=== PATIENT | male | born 1970 | race Caucasian/White ===

== ENCOUNTER 2023-08-12 19:30 | Emergency (ER) | payer OTHER, SELFPAY ==
[2023-08-12 19:31] VITALS: BP 159/94; PULSE 106; RESP 18; TEMP 36.6; O2SAT 100; BMI 30.1
--- NOTE | 2023-08-12 19:52 | ED_ITS ---
Discharge Plan Disposition Patient Disposition: Home, Self-Care Condition: Good Referrals Follow up/Referrals: Johnnie Gilmore [Primary Care Provider] - See instructions Activity Restrictions/Add. Instructions Additional Instructions/Restrictions: You were evaluated in the emergency department today. You may have some localized pain and swelling at the site of injection, however this should not cause you any significant issue. Please monitor for any significant worsening redness, warmth, swelling, or purulent drainage from the wounds, as this could indicate infection. Follow-up with your primary care provider for reassessment. Make sure to use future medications intramuscularly if that is what is instructed on the bottle. Return to the emergency department for new or worsening symptoms Clinical Impressions Clinical Impression: Pain at injection site Instructions Patient Instructions: DI for Intramuscular Injection, DI for Acute Pain -- Adult Discharge ED Provider: Elizabeth Lanier General Adult HPI General Chief complaint: PAIN Stated complaint: abd pain Time Seen by Provider: 08/12/23 19:33 Mode of Arrival: Ambulatory Source of Information: Patient Limitations: No Limitations Description of Symptoms (Recalled from ER Triage Doc. by RN): Pt. was previously on Testerone 100 mg, lost insurance x 1.5 years. Today took Testerone 200 mg sub Q, Dose was suppose to IM. C.o buring to abdomen. History of Present Illness HPI narrative: This patient is a 53-year-old male presenting to the emergency department for evaluation because he accidentally injected his testosterone subcutaneously as opposed to IM. He states that he previously was on subcutaneous testosterone, which he was supposed to inject in his lower abdominal fat. He states that this is the first time he has been given this formulation of testosterone, which on the bottle still subcutaneous. He states he was never notified that it was post to subcutaneous, but when he started having some burning and irritation at the site of injection. He notes that he started trying to inject the medication in his right lower subcutaneous fat on his abdominal wall, but it started burning, so he switched to the left lower side. Now he is having burning at both sites. He states he barely injected the needle into the skin just like he did with the subcutaneous needles. He called the pharmacy given the pain at the site of injection, and the pharmacy stated that since he injected it subcutaneously as opposed to IM, he should come to the emergency department. He complains of localized burning pain at the site of injection, but no other concerns or complaints noted at this time. He used a clean sterile needle and sterilely prepped the skin. Related Data Allergies Allergy/AdvReac Type Severity Reaction Status Date / Time From Codeine Sulfate Allergy Unknown Uncoded 02/23/17 15:01 Opioid Allergy Unknown Uncoded 02/23/17 15:01 Penicillin Allergy Unknown Uncoded 02/23/17 15:01 [facility] Disclaimer: The information contained in this section may have been updated after the patient was seen, as this information can be updated by other users. Social History Smoking Status: Never smoker alcohol intake: never current occupational status: employed Travel in the last 8 weeks: None ROS Obtained: Yes All systems reviewed & no additional complaints except as documented Physical Exam General General appearance: alert and in no apparent distress Head Head exam: atraumatic and normocephalic Eye Eye exam: Present normal appearance, PERRL and EOMI ENT ENT exam: Present normal exam, normal oropharynx, mucous membranes moist and normal external ear exam Neck Neck exam: Present normal inspection, full ROM and trachea midline; Absent tenderness Chest Chest inspection: Present normal inspection and symmetric chest wall rise; Absent tenderness Respiratory Respiratory exam: Present normal lung sounds bilaterally; Absent respiratory distress, wheezes, stridor or accessory muscle use Cardiovascular Cardiovascular exam: Present regular rate and normal rhythm Abdominal Exam Abdominal exam: Present soft and other (Tiny punctate injection dejesus on both lower quadrants of the abdomen with no significant surrounding erythema, bruising induration, fluctuance, warmth, or tenderness to palpation. ); Absent distention, tenderness, guarding, rebound or rigidity Extremities Exam Extremities exam: Present normal inspection, full ROM and normal capillary refill; Absent tenderness or edema Back Exam Back exam: Present normal inspection and full ROM; Absent tenderness Neurological Exam Neurological exam: Present alert, oriented X3, CN II-XII intact and normal gait; Absent motor sensory deficit Psychiatric Psychiatric exam: Present normal affect and normal mood Skin Skin exam: Present warm and dry Medical Decision Making Medical Records Medical records reviewed: Yes I reviewed the patient's medical records. [place] Inquiry Pt receiving controlled substance: No Vital Signs: 08/12/23 19:31 Temperature 97.8 F Temperature Source Oral Pulse Rate [Right Radial] 106 H Respiratory Rate 18 Blood Pressure [Right Arm] 159/94 H Blood Pressure Mean [Right Arm] 115 Blood Pressure Source [Right Arm] Automatic Cuff Blood Pressure Position [Right Arm] Sitting 02 Sat by Pulse Oximetry 100 Oxygen Delivery Method Room Air Lab Data Lab results reviewed: Yes I reviewed the patient's lab results. Orders (Tests/Meds): ED MEDICATIONS Discontinued Medications Generic Name Dose Route Start Last Admin Trade Name Jerica PRN Reason Stop Dose Admin Acetaminophen 1,000 mg 08/12/23 19:51 08/12/23 19:59 Acetaminophen 500mg Tab PO 08/12/23 19:52 1,000 mg ONCE ONE Administration Ketorolac Tromethamine 30 mg 08/12/23 19:51 08/12/23 20:01 Ketorolac 30mg/Ml Vial IM 08/12/23 19:52 30 mg ONCE ONE Administration Medical Decision Narrative: In summary, this patient is a 53-year-old male presenting to the Emergency Department for evaluation of pain at the injection site. Differential diagnoses considered include but are not limited to localized inflammatory response, cellulitis, cyst, abscess, violation of abdominal wall. Ruling out the most morbid conditions drove assessment. On exam, the patient is very well-appearing with benign abdominal exam. Wounds appear to be very superficial with no significant surrounding swelling, fluctuance, induration, redness, or warmth. He notes that he barely put the ne edle just under the skin surface, so I doubt violation of abdominal cavity. Overall, I feel he has localized pain and swelling secondary to injecting a decent volume of medication into the subcutaneous tissues of his abdominal wall. It is too early for any sort of cellulitis or abscess formation, as he just injected this about 30 minutes prior to arrival. I advised that he should monitor for signs of infection or other concerns, but he may just experiencing localized pain and swelling until the medication is absorbed in this area heals. He was given IM Toradol and oral Tylenol for pain control. He was given instructions for close follow-up, strict return precautions, and he was discharged after all questions were answered. Critical Care Critical Care Time Critical Care Time: No
[2023-08-12] MEDS: ACETAMINOPHEN 500MG TAB 1000 MG PO (19:59)
[2023-08-12] MEDS: KETOROLAC 30MG/ML VIAL 30 MG IM (20:01)
[2023-08-12 20:10] VITALS: BP 143/102; PULSE 71; RESP 18; TEMP 36.6; O2SAT 99
== END 2023-08-12 20:18 | disposition home or self-care (01) ==
LOC: ER 20:16
PROVIDERS: Emergency Provider Emergency Medicine; PCP Pediatrics
DX: T80.89XA Other complications following infusion, transfusion and therapeutic injection, initial encounter (principal)
CPT/HCPCS: 96372; 99283